=== PATIENT | female | born 1945 | race Caucasian/White ===

== ENCOUNTER → 2024-12-04 | Outpatient (CLI) | payer MEDICARE, BC, SELFPAY ==
--- NOTE | 2024-12-04 | XR_ITS ---
Examination: AP pelvis 2 views Technique one AP pelvis hips in neutral position, AP pelvis hips abduction position Exam date and time: December 04, 2024 1158 hours INDICATIONS: Pelvic pain beginning 7 days ago. FINDINGS: Moderate osteopenia Mild narrowing hip joints No hip or pelvic fracture No avascular necrosis IMPRESSION: Mild bilateral hip osteoarthritis
--- NOTE | 2024-12-04 | XR_ITS ---
Examination: Lumbar spine, 5 views Technique: Lumbar spine AP, lateral, coned lateral lower lumbar spine, bilateral obliques 5 views Exam date and time: December 04, 2024 and 48 hours INDICATIONS: Low back pain beginning 7 days ago. FINDINGS: Significant osteopenia Prominent lumbar spondylosis No lumbar fracture Diffuse moderate to advanced lumbar degenerative disc disease, most prominent L4-L5, L5-S1 Prominent facet arthropathy IMPRESSION: Diffuse moderate to advanced lumbar degenerative disc disease with significant spinal stenosis
== END | disposition home or self-care (01) ==
LOC: CDIM 11:14
PROVIDERS: PCP Family Medicine; Referring Provider Orthopaedic Surgery; Visit Provider Orthopaedic Surgery
DX: M16.0 Bilateral primary osteoarthritis of hip (principal); M51.369 Other intervertebral disc degeneration, lumbar region without mention of lumbar back pain or lower extremity pain; M48.061 Spinal stenosis, lumbar region without neurogenic claudication
CPT/HCPCS: 72110; 72170

== ENCOUNTER → 2024-12-17 | Outpatient (CLI) | payer MEDICARE, BC, SELFPAY ==
--- NOTE | 2024-12-17 09:30 | XR_ITS ---
Examination: MRI lumbar spine without contrast Date and time of exam: December 17, 2024 0938 hours Comparison September 22, 2009 INDICATIONS: Low back pain years, worse the last 3 weeks radiating down the left leg Technique: Multiple MRI axial and sagittal sections lumbar spine. Sagittal T2-weighted images, TR 3500, TE 118 T1 weighted transverse sections, TR 688 T8.5, T2-weighted sagittal sections T1 weighted sagittal sections TR 621, TE 30 T2 axial sections, TR 4, 190, TE 84. Findings: Adequate alignment lumbar vertebral bodies on the lateral view Moderate disc narrowing L4-L5 No lumbar fracture Moderate lumbar spondylosis Diffuse lumbar disc desiccation No spondylolisthesis L5-S1 3 mm central lumbar disc bulge L4-L5 moderate overall spinal stenosis, 6 mm central lumbar disc bulge extending to the foramina without ganglionic compression L3-L4 6 mm left paracentral subarticular disc bulge displacing the left L4 nerve root L2-L3 no disc protrusion L1-L2 no disc protrusion IMPRESSION: L4-L5 moderate overall spinal stenosis L3-L4 6 mm left paracentral subarticular disc bulge displacing the left L4 nerve root
== END | disposition home or self-care (01) ==
LOC: SMRI 09:00
PROVIDERS: PCP Family Medicine; Referring Provider Orthopaedic Surgery; Visit Provider Orthopaedic Surgery
DX: M51.369 Other intervertebral disc degeneration, lumbar region without mention of lumbar back pain or lower extremity pain (principal); M48.061 Spinal stenosis, lumbar region without neurogenic claudication
CPT/HCPCS: 72148

== ENCOUNTER → 2025-07-26 | Outpatient (CLI) | payer MEDICARE, BC, SELFPAY ==
[2025-07-26 11:33] LABS: Basophils # (Auto) 0.0 Thou/mm3 (0.0-0.2); Basophils % (Auto) 1 % (0-2.5); Eosinophils # (Auto) 0.2 Thou/mm3 (0.0-0.5); Eosinophils % (Auto) 3 % (0-10); Hematocrit 39.3 % (36.0-46.0); Hemoglobin 13.1 g/dL (12.0-16.0); Immature Granulocytes Auto 0.02 Thou/mm3 (0.00-0.00); Lymphocytes # (Auto) 1.3 Thou/mm3 (1.0-4.8); Lymphocytes % (Auto) 24 % (10-50); Mean Corpuscular HGB Conc 33.3 g/dl (31.0-37.0); Mean Corpuscular Hemoglobin 32.0 pg (25.0-35.0); Mean Corpuscular Volume 96 fL (80-100); Monocytes # (Auto) 0.3 Thou/mm3 (0.0-0.8); Monocytes % (Auto) 5 % (0-12); Neutrophils # (Auto) 3.5 Thou/mm3 (1.8-7.7); Neutrophils % (Auto) 67 % (37-80); Nucleated Red Blood Cell # 0.00 Thou/mm3 (0.00-0.00); Nucleated Red Blood Cell % 0 /100 WBC (0); Platelet Count 257 Thou/mm3 (140-440); RDW Standard Deviation 44.0 fL (36.4-46.3); Red Blood Count 4.10 Miln/mm3 (4.00-5.20); White Blood Count 5.2 Thou/mm3 (3.6-11.0)
[2025-07-26 11:48] LABS: Alanine Aminotransferase 30 U/L (10-49); Albumin, Serum 4.7 gm/dL (3.4-4.8); Albumin/Globulin Ratio 2.0 (1.2-2.2); Alkaline Phosphatase 51 U/L (46-116); Anion Gap 11 (7-16); Aspartate Amino Transferase 34 U/L (0-34); BUN/Creatinine Ratio 12 Ratio (12-20); Bilirubin,Total 0.6 mg/dL (0.3-1.2); Blood Urea Nitrogen 12 mg/dL (9-23); Calcium 10.1 mg/dL (8.3-10.6); Calcium (Corrected) 10.1 mg/dL (8.5-10.1); Carbon Dioxide 25.3 mMol/L (20.0-31.0); Cardiac Risk Estimate 3.5 RATIO (3.7-5.6); Chloride 104 mMol/L (98-107); Cholesterol 150 mg/dL (132-200); Creatinine (Component) 1.0 mg/dL (0.6-1.3); Free T4 (Free Thyroxine) 1.32 ng/dL (0.89-1.76); Globulin 2.3 gm/dL (2.3-3.5); Glucose 88 mg/dL (74-106); HDL Cholesterol 43 mg/dL (40-60); LDL Cholesterol,Calculated 57 mg/dL (0-130); Osmolality,Calculated 278 (275-295); Potassium 4.1 mMol/L (3.4-5.1); Sodium 140 mMol/L (136-145); Thyroid Stimulating Hormone 1.60 uIU/mL (0.55-4.78); Total Protein 7.0 gm/dL (5.7-8.2); Triglycerides 252 mg/dL (30-150); eGFR 57 See Note
[2025-07-26 11:49] LABS: Folate > 24.00 ng/mL (>5.38); Vitamin B12 629 pg/mL (211-911); Vitamin D 25 Hydroxy Total 38.8 ng/mL (7.3-40.2)
[2025-08-02 09:17] LABS: Vitamin B6, Plasma* 41.9 ng/mL (2.1-21.7)
== END | disposition home or self-care (01) ==
PROVIDERS: PCP Family Medicine; Referring Provider Internal Medicine; Visit Provider Internal Medicine
DX: E78.5 Hyperlipidemia, unspecified (principal); E55.9 Vitamin D deficiency, unspecified; E03.9 Hypothyroidism, unspecified; N17.9 Acute kidney failure, unspecified; R53.83 Other fatigue
CPT/HCPCS: 36415; 80053; 80061; 82306; 82607; 82746; 83036; 84207; 84439; 84443; 85025